=== PATIENT | female | born 1945 | race Caucasian/White ===

== ENCOUNTER 2017-04-18 10:36 | Emergency (ER) | payer BC, OTHER ==
[~2017-04-18] VITALS: Ht 162.6 cm; Wt 66.7 kg
[2017-04-18 11:31] LABS: Basophils # (auto) 0 uL; Basophils % (auto) 0.4 % (0.0-2.0); CONDITION Y; Eosinophils # (auto) 0.1 uL; Eosinophils % (auto) 2.1 % (0.0-7.0); Hemoglobin 12.9 g/dL (12.2-16.2); Lymphocytes # (auto) 1.4 uL; Lymphocytes % (auto) 21.6 % (10.0-50.0); Mean Corpuscular Hemoglobin 29.1 pg (28.0-32.0); Mean Corpuscular Hgb Conc. 33.1 g/dL (32.0-36.0); Mean Corpuscular Volume 87.7 fL (80.0-100.0); Mean Platelet Volume 8.5 fL (7.4-10.4); Monocytes # (auto) 0.5 uL; Monocytes % (auto) 7.7 % (0.0-12.0); Neutrophils # (auto) 4.4 uL; Neutrophils % (auto) 68.2 % (37.0-80.0); Platelet Count (auto) 302 10^3/uL (140-450); Red Cell Distribution Width 15.1 % (11.6-16.0); White Blood Cell 6.5 10^3/uL (4.4-10.8)
[2017-04-18 12:06] LABS: Albumin 3.6 g/dL (3.4-5.0); Alkaline Phosphatase 89 U/L (45-117); Anion Gap 8 (5-15); Aspartate Aminotransferase 22 U/L (15-37); Bilirubin, Total 0.3 mg/dL (0.2-1.0); Blood Urea Nitrogen 15 mg/dL (7-18); Calcium 8.8 mg/dL (8.5-10.1); Carbon Dioxide 26 mmol/L (21-32); Chloride 102 mmol/L (98-107); GFR African American 81 mL/min; GFR Non-African American 67 mL/min; Glucose 88 mg/dL (74-106); Magnesium 2.3 mg/dL (1.6-2.6); Potassium 3.8 mmol/L (3.5-5.1); Sodium 136 mmol/L (136-145); Total Protein 7.2 g/dL (6.4-8.2)
[2017-04-18 16:14] VITALS: BP 134/83
== END 2017-04-18 16:27 | disposition home or self-care (01) ==
LOC: ER 10:36
DX: R00.2 Palpitations (principal); I10 Essential (primary) hypertension; E07.9 Disorder of thyroid, unspecified; Z85.42 Personal history of malignant neoplasm of other parts of uterus; Z90.710 Acquired absence of both cervix and uterus
CPT/HCPCS: 36415; 71020; 80053; 83735; 84443; 84484; 85025; 93005

== ENCOUNTER → 2018-02-12 | Outpatient (CLI) | payer OTHER ==
[2018-02-12 10:48] LABS: Basophils # (auto) 0 uL; Basophils % (auto) 0.5 % (0.0-2.0); Eosinophils # (auto) 0.2 uL; Eosinophils % (auto) 3.1 % (0.0-7.0); Hematocrit 40.9 % (36.0-46.0); Hemoglobin 13.6 g/dL (12.2-16.2); Lymphocytes # (auto) 1.4 uL; Lymphocytes % (auto) 22.1 % (10.0-50.0); Mean Corpuscular Hemoglobin 29.5 pg (28.0-32.0); Mean Corpuscular Hgb Conc. 33.2 g/dL (32.0-36.0); Mean Corpuscular Volume 88.9 fL (80.0-100.0); Monocytes # (auto) 0.6 uL; Monocytes % (auto) 8.5 % (0.0-12.0); Neutrophils # (auto) 4.3 uL; Neutrophils % (auto) 65.8 % (37.0-80.0); Nucleated Red Blood Cells % 0.1 %; Platelet Count (auto) 298 10^3/uL (140-450); Red Cell Distribution Width 14.8 % (11.8-14.3); White Blood Cell 6.5 10^3/uL (4.4-10.8)
[2018-02-12 11:02] LABS: Urine Bacteria NONE SEEN /hpf (None Seen); Urine Blood Negative /uL (Negative); Urine Specific Gravity 1.003 (1.001-1.035); Urine WBC 1 /hpf (0 - 5)
[2018-02-12 11:59] LABS: Albumin 3.9 g/dL (3.4-5.0); BUN/Creatinine Ratio 10.7; Bilirubin, Total 0.4 mg/dL (0.2-1.0); Calcium 9.4 mg/dL (8.5-10.1); Potassium 4.3 mmol/L (3.5-5.1); Total Protein 7.8 g/dL (6.4-8.2)
== END | disposition home or self-care (01) ==
LOC: LAB 10:28
PROVIDERS: ATTEND Family Medicine
DX: I10 Essential (primary) hypertension (principal); C55 Malignant neoplasm of uterus, part unspecified; K21.9 Gastro-esophageal reflux disease without esophagitis; F31.9 Bipolar disorder, unspecified; Z85.42 Personal history of malignant neoplasm of other parts of uterus
CPT/HCPCS: 36415; 80053; 80061; 81001; 82306; 82607; 84443; 85025; 86304

== ENCOUNTER → 2020-01-03 | Outpatient (CLI) | payer OTHER ==
[2020-01-03 10:30] LABS: Urine WBC None Seen /hpf (0 - 5)
[2020-01-03 10:34] LABS: Basophils # (auto) 0 10 ^3/uL (0-0.2); Basophils % (auto) 0.5 % (0.0-2.0); Eosinophils # (auto) 0.2 10 ^3/uL (0-0.8); Eosinophils % (auto) 2.9 % (0.0-7.0); Hematocrit 39.2 % (36.0-46.0); Hemoglobin 13.2 g/dL (12.2-16.2); Lymphocytes # (auto) 1.2 10 ^3/uL (0.4-5.4); Lymphocytes % (auto) 19.4 % (10.0-50.0); Mean Corpuscular Hemoglobin 30.1 pg (28.0-32.0); Mean Corpuscular Hgb Conc. 33.6 g/dL (32.0-36.0); Mean Corpuscular Volume 89.6 fL (80.0-100.0); Monocytes # (auto) 0.6 10 ^3/uL (0-1.3); Monocytes % (auto) 9.7 % (0.0-12.0); Neutrophils # (auto) 4.2 10 ^3/uL (1.6-8.6); Neutrophils % (auto) 67.5 % (37.0-80.0); Nucleated Red Blood Cells % 0.1 %; Platelet Count (auto) 266 10^3/uL (140-450); Red Blood Cells 4.37 10^6/uL (4.0-5.20); Red Cell Distribution Width 14.1 % (11.8-14.3); White Blood Cell 6.2 10^3/uL (4.4-10.8)
[2020-01-03 10:48] LABS: Urine Bacteria FEW /hpf (None Seen); Urine Blood Negative /uL (Negative); Urine Mucus FEW (None Seen); Urine Specific Gravity 1.004 (1.001-1.035)
[2020-01-03 10:59] LABS: Albumin 3.6 g/dL (3.4-5.0); BUN/Creatinine Ratio 10.8; Calcium 9.2 mg/dL (8.5-10.1)
[2020-01-03 11:03] LABS: Bilirubin, Total 0.4 mg/dL (0.2-1.0); Total Protein 7.5 g/dL (6.4-8.2)
[2020-01-03 11:06] LABS: Free T3 2.97 pg/mL (2.3-4.2); Free T4 (Free Thyroxine) 1.45 ng/dL (0.89-1.76)
== END | disposition home or self-care (01) ==
LOC: LAB 10:05
PROVIDERS: ATTEND Nurse Practitioner
DX: E78.5 Hyperlipidemia, unspecified (principal)
CPT/HCPCS: 36415; 80053; 80061; 81001; 84439; 84443; 84481; 85025

== ENCOUNTER → 2020-06-25 | Outpatient (CLI) | payer OTHER ==
[2020-06-25 08:52] LABS: Basophils # (auto) 0 10 ^3/uL (0-0.2); Basophils % (auto) 0.8 % (0.0-2.0); Eosinophils # (auto) 0.1 10 ^3/uL (0-0.8); Eosinophils % (auto) 2.8 % (0.0-7.0); Hematocrit 38.9 % (36.0-46.0); Hemoglobin 12.9 g/dL (12.2-16.2); Lymphocytes # (auto) 1.6 10 ^3/uL (0.4-5.4); Lymphocytes % (auto) 31.3 % (10.0-50.0); Mean Corpuscular Hemoglobin 30.4 pg (28.0-32.0); Mean Corpuscular Volume 92.1 fL (80.0-100.0); Monocytes # (auto) 0.5 10 ^3/uL (0-1.3); Neutrophils # (auto) 2.8 10 ^3/uL (1.6-8.6); Neutrophils % (auto) 56.1 % (37.0-80.0); Nucleated Red Blood Cells % 0.1 %; Platelet Count (auto) 256 10^3/uL (140-450); Red Blood Cells 4.22 10^6/uL (4.0-5.20); Red Cell Distribution Width 14.6 % (11.8-14.3); White Blood Cell 5.1 10^3/uL (4.4-10.8)
[2020-06-25 09:02] LABS: INR 0.96 (0.9-1.15)
== END | disposition home or self-care (01) ==
LOC: LAB 08:37
PROVIDERS: ATTEND Internal Medicine
DX: N64.89 Other specified disorders of breast (principal); E03.9 Hypothyroidism, unspecified
CPT/HCPCS: 36415; 84439; 84443; 85025; 85610